=== PATIENT | female | born 1950 ===

== ENCOUNTER 2018-10-08 08:08 | Outpatient (CLI) | payer OTHER | END 2018-10-08 08:58 | disposition home or self-care (01) | LOC: LAB 08:08 | DX: I49.8 Other specified cardiac arrhythmias (principal); D64.89 Other specified anemias; D68.8 Other specified coagulation defects; E88.89 Other specified metabolic disorders; N39.0 Urinary tract infection, site not specified; B99.8 Other infectious disease; E03.8 Other specified hypothyroidism; E55.9 Vitamin D deficiency, unspecified; M85.88 Other specified disorders of bone density and structure, other site; E83.42 Hypomagnesemia; E56.1 Deficiency of vitamin K; Z76.89 Persons encountering health services in other specified circumstances; M79.652 Pain in left thigh; M79.605 Pain in left leg ==